=== PATIENT | female | born 1980 | race Caucasian/White ===

== ENCOUNTER → 2016-08-24 | Outpatient (REF) ==
[~2016-08-24] MED LIST: MOTRIN 600600 MG/TAB PO; PERCOCET 325 MG1 TA2 PO; PRENATAL1 TA1
[2016-08-24 19:07] LABS: THYROID STIMULATING HORMONE 2.03 uIU/mL (0.465-4.680)
== END ==
LOC: ZLAB.WCH 18:02
DX: Z01.89 Encounter for other specified special examinations (principal)

== ENCOUNTER 2016-12-25 22:33 | Emergency (ER) | payer BC ==
[~2016-12-25] VITALS: Ht 170.2 cm; Wt 56.8 kg
[2016-12-25 22:35] VITALS: TEMP 98.1
[2016-12-25 23:23] LABS: BASO % 0.4 % (0.0-2.0); EOS # 0.1 (0.0-0.7); EOS % 1.9 % (0-4.0); GRAN # 4.7 (1.4-6.5); GRAN % 67.2 % (42.2-75.2); HEMATOCRIT 29.8 % (37.0-47.0); LYMPH # 1.6 (1.2-3.4); LYMPH % 23.3 % (20.0-51.0); MEAN CELL VOLUME 90 fl (80.0-100.0); MEAN CORPUSCULAR HEMOGLOBIN 30 pg (27.0-31.0); MEAN CORPUSCULAR HGB CONC 34 g/dl (33.0-37.0); MEAN PLATELET VOLUME 9.8 fl (7.4-10.4); MONO # 0.5 (0.1-0.6); MONO % 6.9 % (1.7-9.3); PLATELET COUNT 236 K/mm3 (130-400); RED BLOOD COUNT 3.33 M/mm3 (4.10-5.30); REDCELL DISTRIBUTION WIDTH-CV 12.7 % (11.5-14.5)
[2016-12-25 23:33] LABS: CALCIUM 9.5 mg/dL (8.4-10.2); CREATININE, serum 0.65 mg/dL (0.52-1.25); POTASSIUM 3.7 mmol/L (3.4-5.0)
[2016-12-26 01:01] VITALS: BP 106/59; PULSE 64
== END 2016-12-26 01:01 | disposition home or self-care (01) ==
LOC: COL.ER 22:33
PROVIDERS: Emergency Medicine
DX: R00.2 Palpitations (principal)

== ENCOUNTER → 2018-04-09 | Outpatient (REF) ==
[2018-04-09 16:53] LABS: IRON,SERUM 86 ug/dL (35-150)
[2018-04-09 17:02] LABS: TOTAL IRON BINDING CAPACITY 387 ug/dL (265-497)
[2018-04-09 17:43] LABS: GAMMA GLUTAMYL TRANSPEPTIDASE 16 U/L (12-43)
== END ==
LOC: ZLAB.WCH 16:03
DX: Z01.89 Encounter for other specified special examinations (principal)

== ENCOUNTER → 2018-04-11 | Outpatient (REF) ==
[2018-04-11 23:18] LABS: THYROID STIMULATING HORMONE 2.48 uIU/mL (0.465-4.680)
== END ==
LOC: ZLAB.WCH 18:37
DX: Z01.89 Encounter for other specified special examinations (principal)

== ENCOUNTER 2021-11-05 07:46 | Inpatient (IN) | payer OTHER ==
[~2021-11-05] VITALS: Ht 167.6 cm; Wt 86.8 kg
[2021-11-09] VITALS (23 sets, daily range): BP systolic 95–152; BP diastolic 53–87; PULSE 67–110; TEMP 98.1–98.5
[2021-11-09 08:07] LABS: BASO % 0.2 % (0.0-2.0); EOS # 0.1 K/mm3 (0.0-0.7); EOS % 1.1 % (0.0-4.0); GRAN % 72.6 % (42.2-75.2); HEMOGLOBIN 10.6 g/dl (12.5-16.0); LYMPH # 1.5 K/mm3 (1.2-3.4); LYMPH % 18.2 % (20.0-51.0); MEAN CELL VOLUME 93 fl (80.0-100.0); MEAN CORPUSCULAR HEMOGLOBIN 31 pg (27-31); MEAN CORPUSCULAR HGB CONC 33 g/dl (33.0-37.0); MEAN PLATELET VOLUME 10.6 fl (7.4-10.4); MONO # 0.6 K/mm3 (0.1-0.6); PLATELET COUNT 208 K/mm3 (130-400); RED BLOOD COUNT 3.48 M/mm3 (4.10-5.30)
[2021-11-09 08:09] LABS: HEMATOCRIT 32.2 % (37.0-47.0)
--- NOTE | 2021-11-09 09:05 | NUR ---
41 YO AT 39.2 WKS GESTATION TO LABOR ROOM 3 FOR ELECTIVE INDUCTION OF LABOR UNDER SERVICES OF DR ALVARADO, INDUCTION PROCESS DISCUSSED WITH PT AND , ALL QUESTIONS ANSWERED
--- NOTE | 2021-11-09 09:17 | NUR ---
0740 - 18G TO LEFT WRIST BY ANGELICA HEAD, X3 ATTEMPT, LR BOLUS STARTED TO GRAVITY FOR EPIDURAL
--- NOTE | 2021-11-09 10:37 | NUR ---
0805 - TIMMY ENRICHMENT SPECIALIST NOTIFIED PT REQUESTING EPIDURAL
--- NOTE | 2021-11-09 10:41 | NUR ---
0840 - TIMMY JORGE AND PAUL SRNA TO ROOM FOR EPIDURAL 0842 - UP FOR EPIDURAL
--- NOTE | 2021-11-09 11:41 | NUR ---
0850 - TEST DOSE, PITOCIN INCREASED TO 6MU 0854 - LEFT TILT AFTER EPIDURAL
--- NOTE | 2021-11-09 11:52 | NUR ---
0930 - QUIROGA PLACED WITH CLEAR YELLOW URINE RETURN, SECURED TO LEG. SVE AFTER QUIROGA PLACEMENT /-
--- NOTE | 2021-11-09 12:09 | NUR ---
1050 - SVE /+1, DR ALVARADO NOTIFIED 1053 - QUIROGA CATHETER DC'D 1055 - DR ALVARADO TO ROOM, LABOR ROOM CONVERTED TO DELIVERY ROOM, PT IN FOOT PEDALS 1058 - DELIVERY OF VIABLE MALE INFANT AFTER 35 SECOND SHOULDER DYSTOCIA, RESOLVED AFTER LOWERING HOB, DARY AND SUPRAPUBIC PRESSURE, NUCHAL CORD X1 DELIVERED THRU
--- NOTE | 2021-11-09 13:56 | NUR ---
NURSING BABY. IV PITOCIN INFUSED, IV CONVERTED TO SALINE LOCK. DENIES ANY NEEDS AT THIS TIME, DENIES ANY PAIN OR CRAMPING
[2021-11-10 08:15] VITALS: BP 108/62; PULSE 75
[2021-11-10] MEDS ORDERED: PERCOCET 325 MG1 TA2 PO (10:52)
[2021-11-10] MEDS ORDERED: IBU800 M1 PO (10:52)
--- NOTE | 2021-11-10 14:00 | NUR ---
Discharge instructions and follow up care reviewed with pt and at the bedside. Both verbalized an understanding, agreed with the plan and states no questions or concerns at this time.
== END 2021-11-10 14:15 | disposition home or self-care (01) | DRG 807 ==
LOC: LDR 11-09 06:26 → OB 11-09 07:45
PROVIDERS: ADMIT Student in an Organized Health Care Education/Training Program
PROC: 10E0XZZ Delivery of Products of Conception, External Approach (ICD-10-PCS; principal; 2021-11-09)
PROC: 0HQ9XZZ Repair Perineum Skin, External Approach (ICD-10-PCS; 2021-11-09)
PROC: 3E033VJ Introduction of Other Hormone into Peripheral Vein, Percutaneous Approach (ICD-10-PCS; 2021-11-09)
PROC: 10907ZC Drainage of Amniotic Fluid, Therapeutic from Products of Conception, Via Natural or Artificial Opening (ICD-10-PCS; 2021-11-09)
DX: O99.344 Other mental disorders complicating childbirth (principal); Z37.0 Single live birth; F41.9 Anxiety disorder, unspecified; Z3A.39 39 weeks gestation of pregnancy; O70.0 First degree perineal laceration during delivery; O69.81X0 Labor and delivery complicated by cord around neck, without compression, not applicable or unspecified
CPT/HCPCS: J2590; J7120